=== PATIENT | female | born 1945 | race African-American/Black ===

== ENCOUNTER 2021-03-03 19:57 | Emergency (ER) | payer OTHER ==
[~2021-03-03] VITALS: Ht 165.1 cm; Wt 68.0 kg
[2021-03-03 20:31] LABS: ABSOLUTE NEUTROPHILS 8.7 thou/uL (1.4-8.2); BASOPHILS 0.4 % (0.0-2.0); EOSINOPHILS 0.1 % (0.0-3.0); HEMATOCRIT 39.5 % (37.0-47.0); HEMOGLOBIN 12.9 gm/dL (12.0-15.0); LYMPHOCYTES 13.7 % (24.0-44.0); MCH 29.3 pg (26.0-34.0); MCHC 32.7 g/dL (28.0-37.0); MCV 89.7 fL (80.0-100.0); MONOCYTES 11.4 % (1.0-8.0); PLATELET COUNT 188 thou/uL (150-400); POLYS 74.4 % (36.0-66.0); RBC 4.41 mil/uL (4.20-5.00); RDW 14.3 % (10.5-14.5); WBC 11.7 thou/uL (4.0-11.0)
[2021-03-03 20:38] LABS: ANION GAP 8 mmol/L (7-16); BUN 25 mg/dL (7-18); CALCIUM 9.9 mg/dL (8.5-10.1); CHLORIDE 103 mmol/L (98-107); CO2 28 mmol/L (21-32); CREATININE 1.6 mg/dL (0.6-1.0); GLUCOSE 194 mg/dL (74-106); POTASSIUM 4.1 mmol/L (3.5-5.1); SODIUM 139 mmol/L (136-145)
[2021-03-03 20:40] LABS: URINE BILIRUBIN NEGATIVE (Negative); URINE BLOOD TRACE (Negative); URINE CLARITY CLEAR; URINE COLOR YELLOW; URINE GLUCOSE-RANDOM* NEGATIVE (Negative); URINE KETONES 1+ (Negative); URINE LEUKOCYTES-REFLEX NEGATIVE (Negative); URINE NITRITE-REFLEX NEGATIVE (Negative); URINE PROTEIN (DIPSTICK) 1+ (Negative); URINE SPECIFIC GRAVITY 1.025 (1.005-1.035); URINE UROBILINOGEN 0.2 E.U./dl (0.2-1.0)
[2021-03-03 20:48] LABS: ALBUMIN 4.1 g/dL (3.4-5.0); DIRECT BILIRUBIN 0.2 mg/dL (<0.1-0.2); SGOT 20 U/L (15-37); SGPT 21 U/L (14-59); TOTAL PROTEIN 8.3 g/dL (6.4-8.2); TROPONIN-I <0.06 ng/mL (<0.06)
[2021-03-03 20:49] LABS: AMP/METHAMP Negative (Negative); BARBITURATES Negative (Negative); BENZODIAZEPINES Negative (Negative); COCAINE Negative (Negative); METHADONE Negative (Negative); OPIATES Negative (Negative); PCP Negative (Negative)
[2021-03-03 20:52] LABS: SQUAMOUS >10 Many /LPF (0-3)
[2021-03-03 20:53] LABS: BACTERIA-REFLEX >30 Many /HPF (None Seen); MUCUS 0-3 Light strn/LPF (None Seen)
[2021-03-03 20:54] LABS: URINE RBC 0-2 Rare /HPF (0-2)
[2021-03-03 20:55] LABS: URINE WBC-REFLEX 0-5 Rare /HPF (0-5)
[2021-03-03 20:57] LABS: CASTS None Seen /LPF (None Seen); CRYSTALS None Seen /LPF (None Seen)
[2021-03-03 21:39] LABS: APTT 25.6 Seconds (24.5-32.8); INR 1.09; PROTIME 11.8 Seconds (9.3-11.4)
[2021-03-03 23:31] VITALS: BP 158/56
--- NOTE | 2021-03-04 07:03 | EKG ---
[place] [address] [facility] [place] [address] ELECTROCARDIOGRAM REPORT Name: STEFANY SHANKAR Room #: [facility]P [facility]ENTEROf[facility] [id number] Admission: 03/03/21 Attend Phys: Discharge: 03/03/21 Date of : 43 Report #: [id number] [facility] ED Test Date: 2021-03-03 Test Time: 20:50:05 Pat Name: STEFANY SHANKAR Department: Room: Gender: F [employer] Operator: [email or web address] : 1945 Requested By: Twyla Richard Order Number: [id number] MD: Romario Guallpa Measurements Intervals Sylvester Rate: 86 P: 41 NE: 181 QRS: 26 QRSD: 145 T: 65 QT: 403 QTc: 482 Interpretive Statements Atrial-sensed ventricular-paced complexes No further analysis attempted due to paced rhythm Baseline wander in lead(s) V3,V6 No previous ECG available for comparison Electronically Signed On 03-04-2021 7:03:28 CDT by Romario Guallpa [email or web address] <ELECTRONICALLY SIGNED> By: Romario Guallpa MD, MERGED WITH [facility] 03/04/21 [id number] Romario Guallpa MD, FAC /EPI
== END 2021-03-03 23:39 | disposition short-term general hospital (02) ==
LOC: ER 19:57
PROVIDERS: Emergency Medicine
DX: C71.9 Malignant neoplasm of brain, unspecified (principal); R47.01 Aphasia; Z95.0 Presence of cardiac pacemaker